=== PATIENT | female | born 1980 | race Two or more races ===

== ENCOUNTER 2024-10-18 13:03 | Emergency (ER) | payer OTHER ==
[~2024-10-18] VITALS: Ht 167.6 cm; Wt 86.6 kg
[2024-10-18] MEDS ORDERED: METHYLPREDNISOLONE SOD SUCC 40 MG VIAL IM ONE (14:00)
[2024-10-18] MEDS ORDERED: DIPHENHYDRAMINE HCL 50 MG/ML VIAL 1ML IM ONE (14:00)
[2024-10-18] MEDS ORDERED: MEDROLPACK PO (14:06)
== END 2024-10-18 14:56 | disposition home or self-care (01) ==
LOC: ER 13:06
DX: R21 Rash and other nonspecific skin eruption (principal)
CPT/HCPCS: 96372; 99282; J1200; J3490